=== PATIENT | male | born 1985 | race Caucasian/White ===

== ENCOUNTER 2017-05-02 12:26 | Emergency (ER) | payer OTHER ==
[2017-05-02 13:53] VITALS: BP 133/99
== END 2017-05-02 13:53 | disposition home or self-care (01) ==
LOC: ED 12:26
DX: S90.31XA Contusion of right foot, initial encounter (principal); M77.51 Other enthesopathy of right foot and ankle; W22.8XXA Striking against or struck by other objects, initial encounter; Y93.89 Activity, other specified; Y99.8 Other external cause status; Y92.89 Other specified places as the place of occurrence of the external cause
CPT/HCPCS: Q0092

== ENCOUNTER 2017-06-20 23:06 | Emergency (ER) | payer OTHER | END 2017-06-20 23:15 | disposition EXP | LOC: ED 23:06 | DX: I46.9 Cardiac arrest, cause unspecified (principal); F12.10 Cannabis abuse, uncomplicated | CPT/HCPCS: 82962; J0171; J3490; J7030 ==